=== PATIENT | female | born 2000 | race Caucasian/White ===

== ENCOUNTER 2024-03-22 14:16 | Emergency (ER) | payer OTHER, SELFPAY ==
--- NOTE | 2024-03-22 14:17 | ED.HEATRA ---
HPI - Head Injury General Chief complaint: Head Injury Stated complaint: Hit Head Time Seen by Provider: 03/22/24 14:16 Source: patient Mode of arrival: ambulatory Limitations: no limitations History of Present Illness HPI Narrative: Love is a 23-year-old female patient presenting to the clinic today with complaints hitting her head approximately 45 minutes ago. She reports she tried to duck and is in depth hitting her head on a pipe. Did not lose consciousness but did has some photosensitivity and some nausea afterwards. Denies feeling dizzy or having visual changes at this time. States that she does have a knot to the top of her head and fell as though it popped her neck. Rates the headache as 6/10 currently. She denies any loss of consciousness or vomiting. She reports the headache is improving without medications Related Data Home Medications Medication Instructions Recorded Confirmed No Home Medications 03/22/24 03/22/24 Allergies Allergy/AdvReac Type Severity Reaction Status Date / Time No Known Allergies Allergy Verified 03/22/24 14:27 Review of Systems Review of Systems: Pertinent positives per HPI. Patient denies any fever, chills, rash, headache, visual changes, dizziness, cough, runny nose, sore throat, shortness of breath, chest pain, palpitations, nausea, vomiting, diarrhea, constipation, abdominal pain, or any urinary issues. PMFSH Comments At the time of my signature, I reviewed and agree with the nursing past medical, surgical, social, and family history. There is no relevant family history pertinent to the patient complaint. Exam Narrative: General: Well-developed, well nourished, in no apparent distress Head: Normocephalic, atraumatic Eyes: Pupils equally round and reactive to light bilaterally, EOM intact, sclera and conjunctive clear, no discharge, lids normal Ears: TMs intact and clear, ear canals clear, no drainage, grossly hearing normal. Nose: Nares patent, no discharge, no inflammation, no sinus tenderness. Mouth: Oropharynx without lesions or masses, good dentition, MMM. Tongue midline, even rise and fall of uvula Neck: Supple, trachea midline, no enlargement of anterior or posterior cervical nodes, no thyroid masses or goiter palpable. Cardio: Regular rate and rhythm, s1 and s2 normal, no murmur appreciated. Resp: Clear to auscultation bilaterally anteriorly and posteriorly, no rhonchi, rales, wheezing or rubs Musculoskeletal: No deformity, tender to palpation to the top of the left scalp as well as to the right cervical paraspinous musculature, grossly normal range of motion, muscle strength strong and equal, peripheral pulse strong, no edema, no cyanosis, normal gait and station Neuro: Alert and oriented x4 with normal speech, no focal deficits, cranial nerves I through XII intact, muscle strength 5 out of 5, sensation intact bilaterally, negative Romberg test Course Course Emergency Course: Portions of this record may have been created with voice recognition software. Level of Care: Express Care Visit Vital Signs Vital signs: Vital signs reviewed MDM - Head Injury MDM Narrative Medical decision making narrative: At the time of visit patient is resting comfortably on the exam table. Patient appears to be nontoxic. Plan: Neuro exam is normal in the clinic today. I suspect patient has a closed head injury. Offer to give Tylenol for headache in the clinic and patient declined and states that she has that at home. Supportive measures were discussed with the patient and they voiced understanding discharge instructions and agrees to treatment plan. Return precautions reviewed Differential Diagnosis Differential diagnosis: Likely concussion without loss of consciousness, epidural hematoma, closed head injury, subarachnoid hematoma, postconcussion syndrome, subdural hematoma and concussion with loss of consciousness Discharge Plan Discharge Clinical Impression: Closed head injury Qualifiers: Encounter type: initial encounter Qualified Code(s): S09.90XA - Unspecified injury of head, initial encounter Patient Disposition: Home, Self-Care Condition: Stable Instructions: Antibiotic Form, Head Injury (ED) Additional Instructions: Neuro exam is normal in the clinic today Tylenol as needed for headache for the first 24 hours then may take Ibuprofen, Increase fluids and stay well hydrated. Avoid taking any sedative medications such as muscle relaxers, benadryl, benzos, or narcotic pain medication. Watch for red flag symptoms such as confusion, lethargy, nausea/vomiting, worsening of headache, visual changes, increase in dizziness, or any stroke-like symptoms. If these symptoms develop go to the Emergency Room immediately. Reduce stimuli- lights, computers, videogames, smart phones, tv, and noise over the next 2 days. Increase stimuli gradually. If headache worsens with stimuli reduce stimuli to tolerable level. If playing contact sports will need to follow [place] return to play sports guidelines. Follow up with your PCP in 5- 7 days if symptoms persist as post-concussion syndrome treatment may need to be initiated. Prescriptions: No Action No Home Medications Follow-up/Referrals: UNKNOWN,DOCTOR [Primary Care Provider] - Time of Disposition: 14:33 Quality NIHSS Nursing Documentation ED NIHSS nursing documentation: reviewed/agree
[2024-03-22 14:26] VITALS: BP 113/68; PULSE 101; RESP 16; TEMP 37.1; O2SAT 100
== END 2024-03-22 14:40 | disposition home or self-care (01) ==
PROVIDERS: Emergency Provider Nurse Practitioner Family
DX: S09.90XA Unspecified injury of head, initial encounter (principal); W22.8XXA Striking against or struck by other objects, initial encounter
CPT/HCPCS: 99203; G0463